=== PATIENT | female | born 1980 | race Caucasian/White ===

== ENCOUNTER → 2018-11-02 08:39 | Outpatient (CLI) | payer BC, OTHER, SELFPAY ==
--- NOTE | 2018-11-02 08:42 | US_ITS ---
US OB transvaginal HISTORY: ITS.REASON: US OB Dates ORDERING PHYSICIAN: Johny Treviño MD PATIENT AGE: 38 years COMPARISON: None FINDINGS: An intrauterine gestational sac is present with a pole with a crown-rump length of 3.29cm correlating to gestational age of 10w2d. heart tones are present with an FHR of 154 bpm's. Yolk sac is noted. The amnion and chorion have not yet fused. Adnexa: There is a 17 mm left corpus luteum cyst. IMPRESSION: Live intrauterine gestation at 10 weeks 2 days as described above. Estimated due date by Ultrasound is 05/29/2019
[2018-11-02 10:22] LABS: Basophils % 0.3 % (0.1-2.0); Eosinophils # 0.2 K/mm3 (0.0-0.4); Hematocrit 42.4 % (37.0-47.0); Hemoglobin 14.1 g/dL (12.2-16.2); Lymphocytes # 1.5 K/mm3 (0.7-4.5); Lymphocytes % 18.6 % (10-50); Mean Corpuscular HGB Conc 33.3 g/dL (31.8-35.4); Mean Corpuscular Hemoglobin 31.1 pg (27.0-31.2); Mean Corpuscular Volume 93.3 fl (81-99); Mean Platelet Volume 9.5 fl (7.4-10.4); Monocytes # 0.3 K/mm3 (0.1-1.0); Monocytes % 3.5 % (1.7-9.3); Neutrophils # 6.2 K/mm3 (1.8-7.8); Neutrophils % 75.7 % (37.0-80.0); Platelet Count 250 K/mm3 (142-424); Red Blood Count 4.54 M/mm3 (4.20-5.40); Red Cell Distribution Width 13.8 % (11.5-17.5); White Blood Count 8.2 K/mm3 (4.8-10.8)
[2018-11-03 11:17] LABS: HIV Screen 4th Generation wRfx Non Reactive (Non Reactive); Hepatitis B Surface Antigen Negative (Negative); Hepatitis C Antibody <0.1 s/co ratio (0.0-0.9); Rapid Plasma Reagin Ab Titer Non Reactive (NonRea<1:1); Rubella Antibodies, IgG 1.77 index (Immune >0.99)
[2018-11-04 06:40] LABS: Neisseria gonorrhoeae, NAA Negative (Negative)
== END ==
PROVIDERS: PCP Physician Assistant; Visit Provider Nurse Practitioner Obstetrics & Gynecology
DX: O26.841 Uterine size-date discrepancy, first trimester (principal)
CPT/HCPCS: 36415; 76817; 85025; 86592; 86703; 86762; 86850; 87340; 87380; 87491; 87591; G0432

== ENCOUNTER → 2018-11-02 09:43 | Outpatient (CLI) | payer BC, OTHER, SELFPAY | PROVIDERS: Visit Provider Nurse Practitioner Obstetrics & Gynecology | DX: Z34.90 Encounter for supervision of normal pregnancy, unspecified, unspecified trimester (principal) | CPT/HCPCS: 36415; 85025; 86592; 86703; 86762; 86850; 87340; 87380; 87491; 87591; G0432 ==

== ENCOUNTER → 2019-02-28 09:10 | Outpatient (CLI) | payer BC, OTHER, SELFPAY ==
[2019-02-28 11:09] LABS: Creatinine,Serum 0.55 mg/dL (0.55-1.02)
[2019-02-28 12:38] LABS: Creatinine,Urine Random 33 mg/dL (20-320); Patient Weight,Urine 237 lbs
[2019-02-28 13:02] LABS: Total Protein,Urine Random < 6.0 mg/dL (0.0-11.9)
[2019-02-28 13:33] LABS: Collection Time,Urine 24 hours; Creatinine 24 Hour,Urine 990 mg/24hr (630-2500); Total Protein 24 Hour,Urine 180 mg/24 hr (40-90); Total Volume,Urine 3000 mL (600-1600)
[2019-02-28 13:45] LABS: Creatinine Clearance Urine 103.2 mL/min (25-115)
[2019-02-28 13:46] LABS: Patient Height,Urine 64 inches
[2019-02-28 13:47] LABS: Creatinine,Serum 0.55 mg/dL (0.55-1.02)
== END ==
PROVIDERS: Visit Provider Nurse Practitioner Obstetrics & Gynecology
DX: O24.913 Unspecified diabetes mellitus in pregnancy, third trimester; Z3A.26 26 weeks gestation of pregnancy
CPT/HCPCS: 36415; 82575; 84155

== ENCOUNTER 2019-04-20 10:03 | Outpatient (CLI) | payer BC, OTHER, SELFPAY ==
[2019-04-20 10:10] VITALS: BP 129/87; PULSE 118; RESP 18; TEMP 36.8; O2SAT 98; BMI 43.0
[2019-04-20 10:27] LABS: Microscopic, Urine URINE MICROSCOPIC (MICROSCOPIC)
[2019-04-20 10:29] LABS: Appearance,Urine CLEAR (Clear); Bilirubin,Urine Negative (Negative); Blood, Urine Negative (Negative); Color,Urine YELLOW (Yellow); Glucose,Urine (UA) 3+ (Negative); Ketones,Urine 2+ (Negative); Leukocyte Esterase,Urine Negative (Negative); Nitrate,Urine Negative (Negative); PH,Urine 5.5 (5.0-8.5); Protein,Urine Negative (Negative); Specific Gravity, Urine >= 1.030 (1.005-1.030); Urobilinogen,Urine 0.2 EU/dl (0.2)
[2019-04-20 10:37] LABS: Bacteria,Urine Trace /lpf; Mucus,Urine 1+ /lpf
[2019-04-20 10:38] LABS: Amphetamine/Metha Screen,Urine Negative ng/mL (<1000); Barbiturates Screen,Urine Negative ng/mL (<200); Benzodiazepines Screen,Urine Negative ng/mL (<200); Cannabinoid Screen,Urine Negative ng/mL (<50); Cocaine Screen,Urine Negative ng/mL (<300); Methadone Screen,Urine Negative ng/mL (<300); Opiate Screen,Urine Negative ng/mL (<300); Phencyclidine Screen,Urine Negative ng/mL (<25)
[2019-04-20 11:03] LABS: Basophils % 0.2 % (0.1-2.0); Eosinophils # 0.1 K/mm3 (0.0-0.4); Eosinophils % 1.2 % (0.1-12.0); Hematocrit 41.4 % (37.0-47.0); Hemoglobin 13.1 g/dL (12.2-16.2); Lymphocytes # 1.1 K/mm3 (0.7-4.5); Lymphocytes % 12.8 % (10-50); Mean Corpuscular HGB Conc 31.6 g/dL (31.8-35.4); Mean Corpuscular Hemoglobin 30.3 pg (27.0-31.2); Mean Corpuscular Volume 95.9 fl (81-99); Mean Platelet Volume 10.6 fl (7.4-10.4); Monocytes # 0.3 K/mm3 (0.1-1.0); Monocytes % 3.5 % (1.7-9.3); Neutrophils # 6.9 K/mm3 (1.8-7.8); Neutrophils % 82.3 % (37.0-80.0); Platelet Count 199 K/mm3 (142-424); Red Blood Count 4.32 M/mm3 (4.20-5.40); Red Cell Distribution Width 16.1 % (11.5-17.5); White Blood Count 8.4 K/mm3 (4.8-10.8)
[2019-04-20 11:13] LABS: Anion Gap 19.5 mEq/L (5-15); Blood Urea Nitrogen 8 mg/dL (7-18); Calcium 9.2 mg/dL (8.5-10.1); Carbon Dioxide 20 mmol/L (21.0-32.0); Chloride 102 mmol/L (98-107); Creatinine Clearance Estimated 111 mL/min (50-200); Estimated Glomerular Filt Rate 112 ml/min (>60); GFR (African American) 136 ML/MIN (>60); Glucose 230 mg/dL (74-106); Potassium 4.5 mmoL/L (3.5-5.1); Sodium 137 mmol/L (136-145)
== END 2019-04-20 12:08 | disposition home or self-care (01) ==
LOC: OBOUT 10:07 → OB 10:07
PROVIDERS: PCP Physician Assistant; Visit Provider Nurse Practitioner Obstetrics & Gynecology
DX: O47.03 False labor before 37 completed weeks of gestation, third trimester (principal); Z3A.34 34 weeks gestation of pregnancy
CPT/HCPCS: 59025; 80048; 80305; 81001; 85025; 96360; 96372

== ENCOUNTER 2019-04-21 12:45 | Outpatient (CLI) | payer BC, OTHER, SELFPAY ==
[2019-04-21 13:01] VITALS: BP 128/81; PULSE 80; RESP 20; TEMP 36.7; O2SAT 99; BMI 43.0
== END 2019-04-21 13:00 | disposition home or self-care (01) ==
LOC: OBOUT 12:46 → OB 12:47
PROVIDERS: PCP Physician Assistant; Visit Provider Nurse Practitioner Obstetrics & Gynecology
DX: O47.03 False labor before 37 completed weeks of gestation, third trimester (principal); Z3A.34 34 weeks gestation of pregnancy
CPT/HCPCS: 96372

== ENCOUNTER → 2019-04-26 17:28 | Outpatient (CLI) | payer BC, OTHER, SELFPAY | PROVIDERS: Visit Provider Nurse Practitioner Obstetrics & Gynecology | DX: Z34.90 Encounter for supervision of normal pregnancy, unspecified, unspecified trimester (principal) | CPT/HCPCS: 86403 ==

== ENCOUNTER 2019-04-30 11:33 | Outpatient (CLI) | payer BC, OTHER, SELFPAY ==
[2019-04-30 11:52] VITALS: BP 150/83; PULSE 103; RESP 20; TEMP 36.6; O2SAT 98; BMI 43.0
[2019-04-30 12:06] LABS: Microscopic, Urine URINE MICROSCOPIC (MICROSCOPIC)
[2019-04-30 12:13] LABS: Appearance,Urine SL CLOUDY (Clear); Bilirubin,Urine Negative (Negative); Blood, Urine Negative (Negative); Color,Urine YELLOW (Yellow); Glucose,Urine (UA) Negative (Negative); Ketones,Urine 2+ (Negative); Leukocyte Esterase,Urine Negative (Negative); Nitrate,Urine Negative (Negative); PH,Urine 5.5 (5.0-8.5); Protein,Urine Negative (Negative); Specific Gravity, Urine 1.025 (1.005-1.030); Urobilinogen,Urine 0.2 EU/dl (0.2)
[2019-04-30 12:22] LABS: Amphetamine/Metha Screen,Urine Negative ng/mL (<1000); Barbiturates Screen,Urine Negative ng/mL (<200); Benzodiazepines Screen,Urine Negative ng/mL (<200); Cannabinoid Screen,Urine Negative ng/mL (<50); Cocaine Screen,Urine Negative ng/mL (<300); Methadone Screen,Urine Negative ng/mL (<300); Opiate Screen,Urine Negative ng/mL (<300); Phencyclidine Screen,Urine Negative ng/mL (<25)
[2019-04-30 12:23] LABS: Bacteria,Urine 4+ /lpf
== END 2019-04-30 14:36 | disposition home or self-care (01) ==
LOC: OBOUT 11:35 → OB 11:49
PROVIDERS: PCP Nurse Practitioner Obstetrics & Gynecology; Visit Provider Obstetrics & Gynecology
DX: O47.03 False labor before 37 completed weeks of gestation, third trimester (principal); Z3A.36 36 weeks gestation of pregnancy; R10.9 Unspecified abdominal pain; O09.529 Supervision of elderly multigravida, unspecified trimester
CPT/HCPCS: 59025; 80305; 81001; 87086; 96360; 96372

== ENCOUNTER → 2019-05-02 13:06 | Outpatient (CLI) | payer BC, OTHER, SELFPAY ==
--- NOTE | 2019-05-02 13:12 | US_ITS ---
US OB BPP w/Fet-Mat S/D: Indication: Large for gestational age, check position ITS.REASON: US OB BPP Growth-Unstable Lie- Breech ORDERING PHYSICIAN: Johny Treviño MD PATIENT AGE: 38 years FINDINGS: The following parameters are obtained: Average ultrasound age is 36w5d. Estimated due date by ultrasound is 05/25/2019. Estimated weight is 3854 grams. This is 98th percentile indicating large for gestational age BPD: 37w6d OFD: 39w3d HC: 37w2d AC: Greater than 40 weeks. The abdominal circumference is greater than 2 standard deviations from the mean FL: 35w0d heart rate: 153 bpm. HC/AC: 0.86 (0.93-1.11) Cephalic index: 81% (70-86%) FL/BPD: 73% (71-87%) FL/AC: 18% (20-24%) Amniotic fluid index: . Amniotic fluid index is slightly elevated at 20 cm Qualitative AFV: 2 breathing movements: 2 Gross body movements: 2 Tone: 2 Biophysical profile score: 8/8 Doppler evaluation of the umbilical artery: SD ratio: 2.2 Resistive index: 0.54 There is minimal ectasia of the right renal pelvis at 7 mm.. Placenta: Lat/Post GR 2 Cervix: Appears closed and measures 3 cm IMPRESSION: There is a single live fetus present which is in cephalic presentation. Average ultrasound age is 36 weeks and 5 days. Estimated weight is 3854 g which is 98 percentile. This is consistent with large for gestational age. Biophysical profile is 8 of 8 amniotic fluid index is slightly elevated at 20 cm. Umbilical artery Doppler evaluation is unremarkable
== END ==
PROVIDERS: PCP Physician Assistant; Visit Provider Nurse Practitioner Obstetrics & Gynecology
DX: O32.0XX0 Maternal care for unstable lie, not applicable or unspecified (principal)
CPT/HCPCS: 76819

== ENCOUNTER 2019-05-08 01:27 | Inpatient (IN) ==
[2019-05-08 06:01] LABS: Microscopic, Urine URINE MICROSCOPIC (MICROSCOPIC)
[2019-05-08 06:07] LABS: Basophils % 0.2 % (0.1-2.0); Eosinophils # 0.1 K/mm3 (0.0-0.4); Eosinophils % 1.3 % (0.1-12.0); Hematocrit 39.1 % (37.0-47.0); Hemoglobin 12.6 g/dL (12.2-16.2); Lymphocytes # 1.4 K/mm3 (0.7-4.5); Lymphocytes % 19.6 % (10-50); Mean Corpuscular HGB Conc 32.1 g/dL (31.8-35.4); Mean Corpuscular Volume 89.3 fl (81-99); Mean Platelet Volume 11.3 fl (7.4-10.4); Monocytes # 0.4 K/mm3 (0.1-1.0); Monocytes % 5.1 % (1.7-9.3); Neutrophils # 5.2 K/mm3 (1.8-7.8); Neutrophils % 73.8 % (37.0-80.0); Platelet Count 165 K/mm3 (142-424); Red Blood Count 4.39 M/mm3 (4.20-5.40); Red Cell Distribution Width 15.7 % (11.5-17.5); White Blood Count 7.1 K/mm3 (4.8-10.8)
[2019-05-08 06:15] LABS: Amphetamine/Metha Screen,Urine Negative ng/mL (<1000); Barbiturates Screen,Urine Negative ng/mL (<200); Benzodiazepines Screen,Urine Negative ng/mL (<200); Cannabinoid Screen,Urine Negative ng/mL (<50); Cocaine Screen,Urine Negative ng/mL (<300); Methadone Screen,Urine Negative ng/mL (<300); Opiate Screen,Urine Negative ng/mL (<300); Phencyclidine Screen,Urine Negative ng/mL (<25)
[2019-05-08 06:16] LABS: Appearance,Urine SL CLOUDY (Clear); Bilirubin,Urine Negative (Negative); Blood, Urine Negative (Negative); Color,Urine YELLOW (Yellow); Glucose,Urine (UA) Negative (Negative); Ketones,Urine Negative (Negative); Leukocyte Esterase,Urine Negative (Negative); Protein,Urine Negative (Negative); Specific Gravity, Urine >= 1.030 (1.005-1.030); Urobilinogen,Urine 0.2 EU/dl (0.2)
[2019-05-08 06:49] LABS: Bacteria,Urine 1+ /lpf; Squamous Epithelial Cell,Urine 50-100 #/hpf (0-5); WBC,Urine Occasional #/hpf (0-3)
[2019-05-08 08:08] LABS: Albumin Level 2.6 gm/dL (3.4-5.0); Albumin/Globulin Ratio 0.8 (1.1-1.8); Anion Gap 16.1 mEq/L (5-15); Bilirubin,Total 0.5 mg/dL (0.2-1.0); Calcium 9.1 mg/dL (8.5-10.1); Globulin 3.2 gm/dl (1.3-3.2); Total Protein,Serum 5.8 gm/dL (6.4-8.2)
--- NOTE | 2019-05-08 09:41 | Progress Note ---
Internal Medicine - PN: Subj *Date: 05/08/19 *Time: 09:39 Interval history: We have been having a hard time picking up the baby's heart rate constantly however the nonstress test is reactive. On examination she is 2 cm with the presenting part very high and about 50% effaced. Exam Vital signs and Labs for Last 24 Hours: Temp Pulse Resp BP Pulse Ox 98.2 F 97 H 20 138/76 98 05/08/19 07:00 05/08/19 07:00 05/08/19 07:00 05/08/19 07:00 05/08/19 07:00 Laboratory Results - last 24 hr 05/08/19 05:35: Urine Color Yellow, Urine Appearance Sl cloudy, Urine pH 6.0, Ur Specific [place] >= 1.030, Urine Protein Negative, Urine Glucose (UA) Negative, Urine Ketones Negative, Urine Blood Negative, Urine Nitrate Negative, Urine Bilirubin Negative, Urine Urobilinogen 0.2, Ur Leukocyte Esterase Negative, Urine RBC None, Urine WBC Occasional, Ur Squamous Epith Cells 50-100, Urine Bacteria 1+ 05/08/19 05:35: Urine Opiates Screen Negative, Urine Methadone Screen Negative, Ur Barbituates Screen Negative, Ur Phencyclidine Scrn Negative, Ur Amphetamines Screen Negative, U Benzodiazepines Scrn Negative, Urine Cocaine Screen Negative, U Marijuana (THC) Screen Negative 05/08/19 05:50: WBC 7.1, RBC 4.39, Hgb 12.6, Hct 39.1, MCV 89.3, MCH 28.7, MCHC 32.1, RDW 15.7, Plt Count 165, MPV 11.3 H, Neut % (Auto) 73.8, Lymph % (Auto) 19.6, [place] % (Auto) 5.1, Eos % (Auto) 1.3, Baso % (Auto) 0.2, Neut # (Auto) 5.2, Lymph # (Auto) 1.4, [place] # (Auto) 0.4, Eos # (Auto) 0.1, Baso # (Auto) 0.0 05/08/19 05:50: Blood Type O Positive, Antibody Screen Negative 05/08/19 05:50: Sodium 139, Potassium 4.1, Chloride 105, Carbon Dioxide 22, Anion Gap 16.1 H, BUN 11, Creatinine 0.65, Estimated Creat Clear 102, Estimated GFR 103, Est GFR ( Amer) 124, Glucose 142 H, Calcium 9.1, Total Bilirubin 0.5, AST 17, ALT 17, Alkaline Phosphatase 103, Total Protein 5.8 L, Albumin 2.6 L, Globulin 3.2, Albumin/Globulin Ratio 0.8 L I & O for Last 24 hours: Intake & Output 05/05/19 05/06/19 05/07/19 05/08/19 11:59 11:59 11:59 11:59 Weight 252 lb - Constitutional no acute distress Assessment and Plan (1) AMA (advanced maternal age) multigravida 35+ Current visit: No Status: Acute Category: Medical Code(s): O09.529 - Supervision of elderly multigravida, unspecified trimester (2) Breech presentation Current visit: No Status: Acute Category: Medical Code(s): O32.1XX0 - Maternal care for breech presentation, not applicable or unspecified (3) Diabetes in Current visit: No Status: Acute Category: Medical Code(s): O24.919 - Unspecified diabetes mellitus in , unspecified trimester (4) Hypertension complicating Current visit: No Status: Acute Category: Medical Code(s): O16.9 - Unspecified maternal hypertension, unspecified trimester (5) Obesity affecting Current visit: No Status: Acute Category: Medical Code(s): O99.210 - Obesity complicating , unspecified trimester - Assessment and plan all Dx Assessment and Plan for all problems:: I did an ultrasound in her room and the baby is in the addi breech presentation. The head is on the right upper quadrant of the uterus. As result of this we will go ahead with a section. I discussed the risks of surgery that includes bleeding, infection, injury to the bowel and bladder. We discussed the rare risk of DVT and the need for DVT prophylaxis. We discussed tubal ligation and we will go ahead with a bilateral tubal ligation at the time of her . We discussed the irreversibility of bilateral tubal ligation. All questions were answered and consents were signed.
--- NOTE | 2019-05-08 13:19 | Operative Note ---
Date of procedure: 05/08/19 Pre-op Diagnosis:: Term , gestational diabetes on insulin, breech presentation, desire for sterilization, large for gestational age Post-op Diagnosis:: Term , gestational diabetes on insulin, breech presentation, large for gestational age infant. Desire for sterilization Procedure performed:: Primary lower segment transverse section and bilateral tubal ligation Surgeon:: Johny Treviño MD Nba Player(s):: [facility] DIRECTOR:: Tato Gutierres Anesthesia: spinal Estimated blood loss (mL): 1,200 Clinical Note:: She is a 38-year-old 3 para 2 who is 37 weeks gestational age. She is been followed throughout the with gestational diabetes. She has been on increasing doses of insulin. As a result of that we elected to induce her labor. She was known to be breech 2 weeks ago and then last week had an ultrasound that showed her to be cephalic. The presenting part was still very high today so I did an ultrasound and she was found to be breech again. As result of that she was offered primary lower segment transverse section. She also expressed desire for sterilization. The risks and benefits of surgery were discussed the patient prior to surgery. Operative findings:: She delivered a liveborn male child at 12:32 PM on the afternoon of May 08, 2019. The baby weighed 9 pounds 13 ounces and had Apgars of 7 at 1 minute and 9 at 5 minutes. Ovaries and tubes appeared normal. Operative note:: She was taken to the operating room where spinal anesthesia was found be adequate. She was prepped and draped in normal sterile fashion in the supine position with a leftward tilt. A Gallagher catheter was in the bladder. A Pfannenstiel skin incision was made with knife then carried through to the underlying layer of fascia with cautery. The fascia was opened in the midline with cautery and extended laterally using Saucedo scissors. Dawson clamps were applied to the superior aspect of the fascial incision which was tented up and the underlying rectus muscles dissected off using cautery. The Ania clamps were then applied to the inferior aspect of the fascial incision which in a similar fashion was tented up and the underlying rectus muscles dissected off using cautery. The rectus muscles were then in the midline, the peritoneum identified, and entered sharply with Metzenbaum scissors. This incision was then extended superiorly and inferiorly with cautery. We had good visualization of the bladder inferiorly. The Shawn device was then placed within the abdominal cavity. The bladder peritoneum was then opened in the midline and extended laterally using Metzenbaum scissors. A bladder flap was created digitally. The Shawn device was then placed within the abdominal cavity. Transverse incision was made through the uterine muscle to the amnion. This incision was then extended laterally using fingers traction. The amnion was entered sharply with knife. There was clear amniotic fluid. I then grasped the 's head and moved it into the uterine incision. It was in the right upper quadrant. The 's head was then delivered atraumatically. A loose nuchal cord was then reduced. This was followed by the anterior shoulder and the rest of the 's body atraumatically. The oropharynx and nasopharynx were bulb suctioned. The infant was then handed off to Dr. Brennan who assigned Apgars of 7 at 1 minute and 9 at 5 minutes. We then obtained cord blood as well as cord pH. The pH was 7.29. Using gentle traction on the cord and countertraction on the fundus I was able to easily deliver the placenta intact. It appeared to have an accessory lobe. It had a normal three-vessel cord. The uterus was then cleared of clots and debris . There appeared to be an area posteriorly on the posterior wall that had torn away from the posterior wall. A single stitch was used here to obtain hemostasis. The uterine incision was then closed using running 0 Vicryl suture in a locked fashion. A second layer of the same suture was used to imbricate the first layer. The bladder peritoneum was then closed using running 2-0 Vicryl suture in a locked fashion. The gutters and cul-de-sac were then cleared of clots and debris . Once again hemostasis was assured. We then turned our attention to the tubal ligation. The left tube was grasped with a Marialuisa and a knuckle of tube was clamped across with Aleksandra clamp. This was then doubly suture-ligated. The intervening section of tube was then removed. The distal ends were then cauterized. I cauterized more on the left side because the knuckle of tube was smaller. This was then similar performed on the right side where a knuckle of tube was grasped Aleksandra clamps across the the tube and it was doubly suture-ligated. The knuckle of tube was then removed and the distal ends were cauterized. Once again hemostasis was assured The peritoneum was grasped with Aleksandra clamps and closed using running 2-0 Vicryl suture. The rectus muscles were then reapproximated using running 0 Vicryl suture. The fascia was closed using running #1 Vicryl suture. The subcutaneous tissues were then irrigated with warm water followed by closure Lillian's fascia using running 2-0 Monocryl suture. The skin was closed with meliza. I then cleaned the skin with Hibiclens. Sterile dressings were applied. She tolerated the procedure well and was taken to the recovery room in excellent condition. All sponges minute and needle counts were correct. Estimate a blood loss was approximately 1200 mL. Condition: stable Disposition: PACU Specimens:: Products of conception and fallopian tubes Complications:: None
--- NOTE | 2019-05-08 13:23 | Progress Note ---
[facility] Anesthesia Record Part I Intake, IV Amount: 2,000 Estimated blood loss (mL): 1,200 Urine output (mL): 225 Blood Pressure: 152/93 SaO2: 97 Pulse Rate: 94 Respiratory Rate: 16 Temperature: 97.2 F Patient is:: Drowsy, Stable Stable to PACU at:: 13:15
--- NOTE | 2019-05-08 13:23 | Progress Note ---
[facility] Anesthesia Checklist - Patient Identification Patient Identification: Arm Band - Structural Data Admitted From: Home Planned Operative Procedure/s: primary c/s, btl Consent for Planned Operative Procedure(s) Verified: Yes Verified Documents: Surgical Consent, History and Physical - NPO Status Verified Time NPO: 00:00 - Additional verifications Anesthesia Reactions: No - Airway Assessment C-Spine Mobility Assessed: Yes (mp2) TMJ Mobility Assessed: Yes Dentition: Good Dentition - Neurological Assessment Level of Consciousness: Awake, Alert - Anesthesia Plan Anesthesia Risk discussed: Yes Anesthesia Plan: Verified ASA Class: III Anesthesia Type: Spinal [facility] History I have reviewed the patient's past medical history: Yes Medical History: Reports:: Diabetes Mellitus Type 2, Hyperlipidemia, Hypertension *Have you ever received a pneumonia vaccine?: No *Have you received a flu vaccine this season?: No Other Surgeries: Yes: Other. No: Amputation: No Fractures: No - *Social History Smoking Status: Former smoker Alcohol Intake: never Substance Use Type: denies use *Occupational Status:: employed *Travel in the last 8 weeks: None Family Hx:: No significant family history Para: 2
--- NOTE | 2019-05-08 13:24 | Progress Note ---
[facility] Anesthesia Record Part II Discharge Time: 13:45 Destination: Obstetric PACU nurse assessment reviewed?: Yes Patient Condition:: Good Anesthesia Complications:: None Swallowing reflex intact?: Yes Cyanosis?: No
[2019-05-09 06:49] LABS: Basophils % 0.2 % (0.1-2.0); Eosinophils # 0.1 K/mm3 (0.0-0.4); Hemoglobin 11.1 g/dL (12.2-16.2); Mean Corpuscular HGB Conc 31.8 g/dL (31.8-35.4); Mean Corpuscular Volume 91.5 fl (81-99); Mean Platelet Volume 11.5 fl (7.4-10.4); Monocytes # 0.4 K/mm3 (0.1-1.0); Monocytes % 4.4 % (1.7-9.3); Neutrophils # 7.2 K/mm3 (1.8-7.8); Neutrophils % 82.5 % (37.0-80.0); Platelet Count 175 K/mm3 (142-424); Red Blood Count 3.83 M/mm3 (4.20-5.40); Red Cell Distribution Width 15.8 % (11.5-17.5); White Blood Count 8.7 K/mm3 (4.8-10.8)
--- NOTE | 2019-05-09 07:16 | Progress Note ---
Internal Medicine - PN: Subj *Date: 05/09/19 *Time: 07:15 Interval history: She is doing very well this morning. Her sugars are reasonably stable. She is not taking any medication for her diabetes. She does have type 2 diabetes prior to her . She had a tubal ligation at the time of her . Her pain is reasonably well controlled. Exam Vital signs and Labs for Last 24 Hours: Temp Pulse Resp BP Pulse Ox 98.0 F 89 16 139/72 98 05/09/19 00:55 05/09/19 00:55 05/09/19 00:55 05/09/19 00:55 05/09/19 00:55 Laboratory Results - last 24 hr 05/08/19 05:50: Sodium 139, Potassium 4.1, Chloride 105, Carbon Dioxide 22, Anion Gap 16.1 H, BUN 11, Creatinine 0.65, Estimated Creat Clear 102, Estimated GFR 103, Est GFR ( Amer) 124, Glucose 142 H, Calcium 9.1, Total Bilirubin 0.5, AST 17, ALT 17, Alkaline Phosphatase 103, Total Protein 5.8 L, Albumin 2.6 L, Globulin 3.2, Albumin/Globulin Ratio 0.8 L 05/08/19 12:35: Cord ABG pH 7.29 L 05/08/19 13:25: POC Glucose 132 H 05/08/19 15:32: POC Glucose 165 H 05/09/19 06:30: WBC 8.7, RBC 3.83 L, Hgb 11.1 L, Hct 35.0 L, MCV 91.5, MCH 29.1, MCHC 31.8, RDW 15.8, Plt Count 175, MPV 11.5 H, Neut % (Auto) 82.5 H, Lymph % (Auto) 12.0, [place] % (Auto) 4.4, Eos % (Auto) 1.0, Baso % (Auto) 0.2, Neut # (Auto) 7.2, Lymph # (Auto) 1.0, [place] # (Auto) 0.4, Eos # (Auto) 0.1, Baso # (Auto) 0.0 I & O for Last 24 hours: Intake & Output 05/06/19 05/07/19 05/08/19 05/09/19 11:59 11:59 11:59 11:59 Intake Total 1999 Balance 1999 Weight 252 lb - Constitutional no acute distress Assessment and Plan (1) AMA (advanced maternal age) multigravida 35+ Current visit: No Status: Acute Category: Medical Code(s): O09.529 - Supervision of elderly multigravida, unspecified trimester (2) Breech presentation Current visit: No Status: Acute Category: Medical Code(s): O32.1XX0 - Maternal care for breech presentation, not applicable or unspecified (3) Diabetes in Current visit: No Status: Acute Category: Medical Code(s): O24.919 - Unspecified diabetes mellitus in , unspecified trimester (4) Hypertension complicating Current visit: No Status: Acute Category: Medical Code(s): O16.9 - Unspecified maternal hypertension, unspecified trimester (5) Obesity affecting Current visit: No Status: Acute Category: Medical Code(s): O99.210 - Obesity complicating , unspecified trimester - Assessment and plan all Dx Assessment and Plan for all problems:: She is doing very well this morning. Her hemoglobin is stable. We will plan to send her home in 48 hours.
[2019-05-09 20:23] VITALS: BP 130/63
--- NOTE | 2019-05-10 09:23 | Progress Note ---
Internal Medicine - PN: Subj *Date: 05/10/19 *Time: 09:21 Interval history: She is doing well. She has reasonable control over her pain. Her incision is clean and dry. She is bottlefeeding. Her sugars are doing reasonably well. She has started her metformin 1000 mg twice daily. Exam Vital signs and Labs for Last 24 Hours: Temp Pulse Resp BP Pulse Ox 98.4 F 106 H 16 130/63 97 05/09/19 19:55 05/09/19 19:55 05/09/19 19:55 05/09/19 19:55 05/09/19 19:55 I & O for Last 24 hours: Intake & Output 05/07/19 05/08/19 05/09/19 05/10/19 11:59 11:59 11:59 11:59 Intake Total 1999 / 1999 Output Total 600 / 600 Balance 1400 / 1400 Weight 252 lb - Constitutional no acute distress Assessment and Plan (1) AMA (advanced maternal age) multigravida 35+ Current visit: No Status: Acute Category: Medical Code(s): O09.529 - Supervision of elderly multigravida, unspecified trimester (2) Breech presentation Current visit: No Status: Acute Category: Medical Code(s): O32.1XX0 - Maternal care for breech presentation, not applicable or unspecified (3) Diabetes in Current visit: No Status: Acute Category: Medical Code(s): O24.919 - Unspecified diabetes mellitus in , unspecified trimester (4) Hypertension complicating Current visit: No Status: Acute Category: Medical Code(s): O16.9 - Unspecified maternal hypertension, unspecified trimester (5) Obesity affecting Current visit: No Status: Acute Category: Medical Code(s): O99.210 - Obesity complicating , unspecified trimester (6) Delivery by section Current visit: Yes Status: Acute Category: Surgical (7) Delivery by section for breech presentation Current visit: Yes Status: Acute Category: Medical Code(s): O32.1XX0 - Maternal care for breech presentation, not applicable or unspecified - Assessment and plan all Dx Assessment and Plan for all problems:: She is doing well. We will plan to send her home tomorrow.
--- NOTE | 2019-05-11 08:21 | Discharge Summary ---
General - General Admission date:: 05/08/19 Discharge date: 05/11/19 HPI HPI: She is a 38-year-old 3 now para 3 who was 37+ weeks gestational age. She has been having increasing requirements for insulin with her gestational diabetes and as a result of that we elected to deliver her early. Is also known to have a large for gestational age infant. She has had previous 10 pound infants. She was found to be in the breech presentation as a result of that was taken for a primary lower segment transverse section. She also expressed desire for sterilization we performed a bilateral tubal ligation. Hospital Course Hospital Course: She was initially admitted for induction of labor because while she had been breech a recent ultrasound showed that she was now cephalic. However it became apparent that she was breech and this was confirmed by an ultrasound. As result of that we took her for a primary lower segment transverse or injection. She delivered a liveborn male child at 12:32 PM in the afternoon of May 08, 2019. The baby weighed 9 pounds 13 ounces and was 21 inches long. He had Apgars of 7 at 1 minute and 9 at 5 minutes. She underwent a bilateral tubal ligation at the time of her surgery. She has done well and has remained afebrile throughout her hospitalization. She is eating and drinking and ambulating. She is bottlefeeding. Her lochia is normal. Her pain is well controlled. We will leave her meliza in for the next week and I will remove them in the office next week. She will continue with her vitamins and iron. She will continue with her home medications. She has stopped taking her insulin but will continue with her oral hypoglycemics. Her sugars are doing well. She has O+ blood, she is rubella immune and was group B streptococcus negative. We will give her a prescription for Percocet 5/325 number 30 tablets as well. Rhogam Administration: Not Indicated Objective Vital signs: Temp Pulse Resp BP Pulse Ox 98.4 F 106 H 16 130/63 97 05/09/19 19:55 05/09/19 19:55 05/09/19 19:55 05/09/19 19:55 05/09/19 19:55 no acute distress DS: Diagnosis - Discharge Diagnosis (1) AMA (advanced maternal age) multigravida 35+ Status: Acute (2) Breech presentation Status: Acute (3) Diabetes in Status: Acute (4) Hypertension complicating Status: Acute (5) Obesity affecting Status: Acute (6) Delivery by section Status: Acute (7) Delivery by section for breech presentation Status: Acute Discharge Plan - Patient Discharge Instructions ACTIVITY: No heavy lifting DIET: continue same diet - Follow up Plan Follow up with: Johny Treviño MD [Staff Physician] - 05/30/19 9:30 am Disposition: Home, Self-Jail Medications: Home Medications Medication Instructions Recorded Confirmed Type metformin 1,000 mg tablet 1,000 mg PO BID 90 Days #180 tab 10/27/18 05/09/19 History insulin aspart U-100 100 unit/mL 0 unit SQ TID ml 12/27/18 05/08/19 History subcutaneous solution insulin glargine (U-100) 100 104 unit SQ HS ml 12/27/18 05/08/19 History unit/mL (3 mL) subcutaneous pen vit no.95-ferrous 1 tab PO DAILY 90 Days #90 tab 01/26/19 05/08/19 History fumarate 28 mg-folic acid 800 mcg tablet Ferrous Sulfate 325 mg PO DAILY 05/08/19 05/08/19 History Labetalol HCl 200 mg PO BID 05/08/19 05/08/19 History Oxycodone HCl/Acetaminophen 1 - 2 tab PO Q4-6H PRN #30 tab 05/11/19 Rx [Percocet 5/325mg tablet] Prescriptions/Medication Reconciliation: New Oxycodone HCl/Acetaminophen [Percocet 5/325mg tablet] 1 - 2 tab PO Q4-6H PRN #30 tab PRN Reason: Severe Pain Continued vit no.95-ferrous fumarate 28 mg-folic acid 800 mcg tablet 1 tab PO DAILY 90 Days #90 tab metformin 1,000 mg tablet 1,000 mg PO BID 90 Days #180 tab Labetalol HCl 200 mg PO BID Ferrous Sulfate 325 mg PO DAILY Discontinued insulin aspart U-100 100 unit/mL subcutaneous solution 0 unit SQ TID ml insulin glargine (U-100) 100 unit/mL (3 mL) subcutaneous pen 104 unit SQ HS ml
== END 2019-05-11 11:20 | disposition home or self-care (01) | DRG 783 ==
LOC: OB 05:25
PROVIDERS: ADMIT Nurse Practitioner Obstetrics & Gynecology; ATTEND Nurse Practitioner Obstetrics & Gynecology
CPT/HCPCS: 36415; 59025; 80053; 80305; 81001; 82800; 82962; 85025; 86850; 94761; J1956; J2405; S0077

== ENCOUNTER → 2019-12-06 10:53 | Outpatient (CLI) | payer BC, OTHER, SELFPAY ==
[2019-12-06 11:30] LABS: Basophils % 0.5 % (0.1-2.0); Eosinophils # 0.4 K/mm3 (0.0-0.4); Eosinophils % 6.6 % (0.1-12.0); Hematocrit 42.2 % (37.0-47.0); Hemoglobin 14.2 g/dL (12.2-16.2); Lymphocytes # 1.9 K/mm3 (0.7-4.5); Lymphocytes % 30.2 % (10-50); Mean Corpuscular HGB Conc 33.6 g/dL (31.8-35.4); Mean Corpuscular Hemoglobin 30.8 pg (27.0-31.2); Mean Corpuscular Volume 91.4 fl (81-99); Mean Platelet Volume 9.1 fl (7.4-10.4); Monocytes # 0.2 K/mm3 (0.1-1.0); Monocytes % 3.8 % (1.7-9.3); Neutrophils # 3.7 K/mm3 (1.8-7.8); Platelet Count 272 K/mm3 (142-424); Red Blood Count 4.61 M/mm3 (4.20-5.40); Red Cell Distribution Width 13.2 % (11.5-17.5); White Blood Count 6.2 K/mm3 (4.8-10.8)
[2019-12-06 12:39] LABS: Anion Gap 14.1 mEq/L (5-15); Blood Urea Nitrogen 9 mg/dL (7-18); Calcium 9.5 mg/dL (8.5-10.1); Carbon Dioxide 27 mmol/L (21.0-32.0); Chloride 106 mmol/L (98-107); Creatinine,Serum 0.66 mg/dL (0.55-1.02); Estimated Glomerular Filt Rate 100 ml/min (>60); GFR (African American) 121 ML/MIN (>60); Glucose 194 mg/dL (74-106); Potassium 4.1 mmoL/L (3.5-5.1); Sodium 143 mmol/L (137-145)
[2019-12-06 13:26] LABS: HCG Qualitative, Serum Negative (Negative)
== END ==
PROVIDERS: Visit Provider Nurse Practitioner Obstetrics & Gynecology
DX: Z01.818 Encounter for other preprocedural examination (principal); N92.0 Excessive and frequent menstruation with regular cycle
CPT/HCPCS: 36415; 80048; 84703; 85025

== ENCOUNTER → 2021-04-03 18:09 | Outpatient (CLI) | payer BC, OTHER, SELFPAY ==
[2021-04-03 18:31] LABS: Chloride 103 mmol/L (98-107); Potassium 4.7 mmoL/L (3.5-5.1); Sodium 136 mmol/L (136-145)
[2021-04-03 18:32] LABS: Hemoglobin A1C 7.4 % (4.0-6.0)
[2021-04-03 18:34] LABS: Alanine Aminotransferase 70 U/L (12-78); Albumin Level 4.4 g/dl (3.5-5.0); Albumin/Globulin Ratio 1.8 (1.1-1.8); Alkaline Phosphatase 90 U/L (38-126); Anion Gap 12.7 mEq/L (5-15); Aspartate Amino Transferase 57 U/L (14-36); Blood Urea Nitrogen 10 mg/dl (7-17); Calcium 9.2 mg/dl (8.4-10.2); Carbon Dioxide 25 mmol/L (22.0-30.0); Cholesterol 181 mg/dl (140-200); Estimated Glomerular Filt Rate 111 ml/min (>60); GFR (African American) 135 ML/MIN (>60); Globulin 2.4 g/dL (1.3-3.2); Glucose 215 mg/dl (74-100); Total Protein,Serum 6.8 g/dl (6.3-8.2); Triglycerides 399 mg/dl (30-150); VLDL Cholesterol 80 mg/dL (0-40)
[2021-04-03 18:35] LABS: Chol/HDL Ratio 5.5 (1-3.5); HDL Cholesterol 33 mg/dl (40-60)
[2021-04-03 18:46] LABS: Direct LDL Cholesterol 111.67 mg/dL (100-129)
== END ==
PROVIDERS: Visit Provider Internal Medicine Adolescent Medicine
DX: E11.9 Type 2 diabetes mellitus without complications (principal); E78.2 Mixed hyperlipidemia; Z79.84 Long term (current) use of oral hypoglycemic drugs
CPT/HCPCS: 80053; 80061; 83036

== ENCOUNTER → 2021-10-09 18:08 | Outpatient (CLI) | payer BC, OTHER, SELFPAY ==
[2021-10-09 19:27] LABS: Alanine Aminotransferase 113 U/L (12-78); Albumin Level 4.3 g/dl (3.5-5.0); Albumin/Globulin Ratio 1.7 (1.1-1.8); Alkaline Phosphatase 71 U/L (38-126); Anion Gap 14.7 mEq/L (5-15); Aspartate Amino Transferase 90 U/L (14-36); Blood Urea Nitrogen 5 mg/dl (7-17); Calcium 9.7 mg/dl (8.4-10.2); Carbon Dioxide 28 mmol/L (22.0-30.0); Chloride 101 mmol/L (98-107); Chol/HDL Ratio 5.1 (1-3.5); Cholesterol 173 mg/dl (140-200); Estimated Glomerular Filt Rate 111 ml/min (>60); GFR (African American) 134 ML/MIN (>60); Globulin 2.6 g/dL (1.3-3.2); Glucose 194 mg/dl (74-100); HDL Cholesterol 34 mg/dl (40-60); Potassium 4.7 mmoL/L (3.5-5.1); Sodium 139 mmol/L (136-145); Total Protein,Serum 6.9 g/dl (6.3-8.2); Triglycerides 228 mg/dl (30-150); VLDL Cholesterol 46 mg/dL (0-40)
[2021-10-09 19:33] LABS: Hemoglobin A1C 8.5 % (4.0-6.0)
[2021-10-09 19:38] LABS: Direct LDL Cholesterol 121.16 mg/dL (100-129)
[2021-10-12 10:08] LABS: Hep A Ab, IgM Negative (Negative); Hepatitis B Core Antibody IgM Negative (Negative); Hepatitis B Surface Antigen Negative (Negative); Hepatitis C Antibody <0.1 s/co ratio (0.0-0.9)
== END ==
PROVIDERS: Visit Provider Nurse Practitioner Family
DX: Z00.00 Encounter for general adult medical examination without abnormal findings (principal); I10 Essential (primary) hypertension; E11.9 Type 2 diabetes mellitus without complications; E78.2 Mixed hyperlipidemia; R74.8 Abnormal levels of other serum enzymes; Z79.84 Long term (current) use of oral hypoglycemic drugs
CPT/HCPCS: 80053; 80061; 80074; 83036

== ENCOUNTER → 2021-10-14 07:58 | Outpatient (CLI) | payer BC, OTHER, SELFPAY ==
--- NOTE | 2021-10-14 08:03 | US_ITS ---
PROCEDURE: US LIVER CLINICAL INDICATION: ELEVATED LIVER ENZYMES COMPARISON: No exams were available for comparison FINDINGS: PANCREAS: Unremarkable. No obvious mass or abnormal fluid collection. No ductal dilatation LIVER: Diffuse increased echogenicity of the liver with poor through transmission of sound consistent with hepatic steatosis. No focal liver lesion demonstrated. There is appropriate direction of blood flow within non dilated portal vein. RIGHT KIDNEY: Unremarkable. Normal size and echogenicity. No hydronephrosis GALLBLADDER: No gallstones, gallbladder wall thickening, pericholecystic fluid, or biliary dilatation. IMPRESSION: Fatty liver otherwise negative Dictated by: Juan Muniz MD 10/14/2021 17:59 Juan Muniz MD in [facility] 10/14/2021 17:59
== END ==
PROVIDERS: PCP Internal Medicine Adolescent Medicine; Visit Provider Nurse Practitioner Family
DX: R74.8 Abnormal levels of other serum enzymes (principal)
CPT/HCPCS: 76705

== ENCOUNTER → 2021-10-27 10:49 | Outpatient (CLI) | payer OTHER, BC, SELFPAY ==
--- NOTE | 2021-10-27 10:57 | MM_ITS ---
PROCEDURE INFORMATION: Exam: MG Bilateral Screening 3D Mammography Exam date and time: 10/27/2021 10:57 AM Age: 41 years old Clinical indication: Screening mammogram TECHNIQUE: Imaging protocol: Bilateral screening tomosynthesis and 2D mammography including computer-aided detection (CAD) when performed. COMPARISON: No relevant prior studies available. FINDINGS: MAMMOGRAPHY: Breast composition: There are scattered areas of fibroglandular density. Mass: None. Architectural distortion: No new or suspicious architectural distortion. Calcifications: No new or suspicious calcifications are present Asymmetric density: No new or suspicious asymmetric density is present Skin thickening: None. Axillary adenopathy: None. IMPRESSION: No mammographic evidence of malignancy. Recommend annual screening mammography unless otherwise clinically indicated. ASSESSMENT: BI-RADS category 1: Negative
== END ==
PROVIDERS: PCP Internal Medicine Adolescent Medicine; Visit Provider Nurse Practitioner Family
DX: Z12.31 Encounter for screening mammogram for malignant neoplasm of breast (principal)
CPT/HCPCS: 77063; 77067

== ENCOUNTER → 2022-11-19 09:42 | Outpatient (CLI) | payer BC, OTHER, SELFPAY ==
--- NOTE | 2022-11-19 09:46 | MM_ITS ---
PROCEDURE INFORMATION: Exam: MG Bilateral Screening 3D Mammography Exam date and time: 11/19/2022 9:44 AM Age: 42 years old Clinical indication: Screening mammogram TECHNIQUE: Imaging protocol: Bilateral Screening tomosynthesis and 2D mammography including computer-aided detection (CAD) when performed. COMPARISON: MG MM DIG SCREENING MAMM BI W/CAD 10/27/2021 10:56 AM FINDINGS: MAMMOGRAPHY: Breast composition: There are scattered areas of fibroglandular density. Mass: None. Architectural distortion: No new or suspicious architectural distortion. Calcifications: No new or suspicious calcifications are present Asymmetric density: No new or suspicious asymmetric density is present Skin thickening: None. Axillary adenopathy: None. IMPRESSION: No mammographic evidence of malignancy. Recommend annual screening mammography unless otherwise clinically indicated. ASSESSMENT: BI-RADS category 1: Negative
== END ==
PROVIDERS: PCP Internal Medicine Adolescent Medicine; Visit Provider Nurse Practitioner Family
DX: Z12.31 Encounter for screening mammogram for malignant neoplasm of breast (principal)
CPT/HCPCS: 77063; 77067

== ENCOUNTER 2023-12-13 15:18 | Outpatient (CLI) | payer BC, OTHER, SELFPAY ==
--- NOTE | 2023-12-13 15:22 | MM_ITS ---
PROCEDURE INFORMATION: Exam: MG Bilateral Screening 3D Mammography Exam date and time: 12/13/2023 3:13 PM Age: 43 years old Clinical indication: Screening mammogram TECHNIQUE: Imaging protocol: Bilateral Screening tomosynthesis and 2D mammography including computer-aided detection (CAD) when performed. COMPARISON: 1. MG MM DIG SCREENING MAMM BI W/CAD 11/19/2022 9:44 AM 2. MG MM DIG SCREENING MAMM BI W/CAD 10/27/2021 10:56 AM FINDINGS: MAMMOGRAPHY: Breast composition: There are scattered areas of fibroglandular density. Mass: None. Architectural distortion: No new or suspicious architectural distortion. Calcifications: No new or suspicious calcifications are present Asymmetric density: No new or suspicious asymmetric density is present Skin thickening: None. Axillary adenopathy: None. IMPRESSION: No mammographic evidence of malignancy. Recommend annual screening mammography unless otherwise clinically indicated. ASSESSMENT: BI-RADS category 1: Negative
== END 2023-12-13 23:59 ==
LOC: RAD 15:19
PROVIDERS: PCP Internal Medicine Adolescent Medicine; Visit Provider Internal Medicine Adolescent Medicine
DX: Z12.31 Encounter for screening mammogram for malignant neoplasm of breast (principal)
CPT/HCPCS: 77063; 77067